=== PATIENT | female | born 1980 | race American Indian/Alaskan Native ===

== ENCOUNTER 2018-12-25 21:27 | Inpatient (IN) | payer MEDICAID ==
[2018-12-25] MEDS ORDERED: LACTATED RINGERS 1,000 ML ONE (23:22)
[2018-12-25] MEDS ORDERED: AMPICILLIN/NS 2 GM/100 ML 2 GM/100 ML BAG IV ONE ×2 (23:35→23:45)
[2018-12-25] MEDS ORDERED: STADOL IV PRN (23:40)
[2018-12-25] MEDS ORDERED: LACTATED RINGERS 1,000 ML IV SCH (23:45)
[2018-12-26] MEDS ORDERED: PITOCin/NS 30 UNIT/500ML 30,000 MILLIUNITS/500 ML BAG IV ONE (00:54)
[2018-12-26] MEDS ORDERED: BENADRYL IV ONE (01:03)
[2018-12-26] MEDS ORDERED: BENADRYL ONE (01:06)
[2018-12-26] MEDS: CLEOCIN 900 MG/50 mL 900 MG/50 ML BAG IV SCH ×2 (01:28→09:36)
[2018-12-26 01:59] LABS: Hematocrit 39.8 % (30.3-42.9); Hemoglobin 13.5 gm/dl (10.1-14.3); Mean Corpuscular HGB Conc 34 % (30-34); Mean Corpuscular Volume 97 fl (79-97); Platelet Count 144 K/mm3 (140-440); Red Blood Count 4.12 M/mm3 (3.65-5.03)
[2018-12-26] MEDS ORDERED: PITOCin/NS 30 UNIT/500ML 30 UNITS/500 ML BAG IV SCH (03:00)
[2018-12-26] MEDS ORDERED: AMPICILLIN 1 GM in NACL 0.9% 50 ML IV SCH (04:00)
--- NOTE | 2018-12-26 09:35 | Anesthesia Day of Surgery ---
Anesthesia Day of Surgery - Day of Surgery Patient Examined: Yes Patient H&P Reviewed: Yes Patient is NPO: Yes Beta Blockers: No Cardiac Clearance: No Pulmonary Clearance: No Agustin's Test: N/A
[2018-12-26] MEDS ORDERED: NARCAN 2 MG/2 ML IV PRN (09:40)
--- NOTE | 2018-12-26 09:40 | Anesthesia Consultation ---
Anesthesia Consult and Med Hx Date of service: 12/26/18 - Airway Anesthetic Teeth Evaluation: Poor, Chipped ROM Head & Neck: Adequate Mental/Hyoid Distance: Adequate Mallampati Class: Class II Intubation Access Assessment: Probably Good - Pulmonary Exam CTA: Yes - Cardiac Exam Cardiac Exam: RRR - Pre-Operative Health Status ASA Pre-Surgery Classification: ASA2 Proposed Anesthetic Plan: Epidural - Pulmonary Hx Smoking: No Hx Asthma: No Hx Respiratory Symptoms: No SOB: No COPD: No Hx Pneumonia: No Hx Sleep Apnea: No - Cardiovascular System Hx Hypertension: No Hx Coronary Artery Disease: No Hx Heart Attack/AMI: No Hx Angina: No Hx Percutaneous Transluminal Coronary Angioplasty (PTCA): No Hx Cardia Arrhythmia: No Hx Pacemaker: No Hx Internal Defibrillator: No Hx Valvular Heart Disease: No Hx Heart Murmur: No Hx Peripheral Vascular Disease: No - Central Nervous System Hx Neuromuscular Disorder: No Hx Seizures: No CVA: No Hx Back Pain: No Hx Psychiatric Problems: No - Gastrointestinal Hx Ulcer: No Hx Gastroesophageal Reflux Disease: No - Endocrine Hx Renal Disease: No Hx End Stage Renal Disease: No Hx Cirrhosis: No Hx Liver Disease: No Hx Insulin Dependent Diabetes: No Hx Non-Insulin Dependent Diabetes: No Hx Thyroid Disease: No Hx Hypothyroidism: No Hx Hyperthyroidism: No - Hematic Hx Anemia: Yes Hx Sickle Cell Disease: No - Other Systems Hx Alcohol Use: No Hx Substance Use: No Hx Cancer: No Hx Obesity: No
[2018-12-26] MEDS ORDERED: fentaNYL-BUPIV 2 MCG/ML-0.125% 200 MCG/100 ML BAG EPIDURAL SCH (10:00)
[2018-12-26] MEDS ORDERED: MARCAINE 0.25% INFILTRATI ONE (11:00)
[2018-12-26] MEDS ORDERED: PITOCin/NS 20 UNIT/1000ML DRIP 20,000 MILLIUNITS/1,000 ML BAG IV ONE (12:49)
--- NOTE | 2018-12-26 13:16 | History and Physical Report ---
History of Present Illness Date of examination: 12/25/18 Date of admission: 12/25/18 21:27 Chief complaint: I'm here for induction History of present illness: Pt is a 38 year old who presents for induction of labor at 39.1 weeks at the advice of [facility]. Her course has been unremarkable. Past History Past Medical History: no pertinent history Past Surgical History: no surgical history Family/Genetic History: none Social history: - Obstetrical History Expected Date of Delivery: 12/31/18 Actual Gestation: 39 Week(s) 2 Day(s) : 6 Para: 3 Number of Living Children: 3 Medications and Allergies Allergies Allergy/AdvReac Type Severity Reaction Status Date / Time ampicillin Allergy Hives Verified 12/25/18 23:24 Active Meds: Active Medications Butorphanol Tartrate (Stadol) 2 mg IV Q2H PRN PRN Reason: Labor Pain Last Admin: 12/26/18 09:03 Dose: 2 mg Documented by: Ephedrine Sulfate (Ephedrine Sulfate) 10 mg IV Q2M PRN PRN Reason: Hypotension Lactated Ringer's (Lactated Ringers) 1,000 mls @ 125 mls/hr IV DIRECT SANTINO Clindamycin HCl (Cleocin 900 Mg/50 Ml) 900 mg in 50 mls @ 100 mls/hr IV Q8H SANTINO; Protocol Last Admin: 12/26/18 09:36 Dose: 100 mls/hr Documented by: Oxytocin/Sodium Chloride (Pitocin/Ns 30 Unit/500ml) 30 units in 500 mls @ 2 mls/hr IV TITR SANTINO; Protocol Last Titration: 12/26/18 09:04 Dose: 8 ml/hr, 8 mls/hr Documented by: Fentanyl/Bupivacaine/Sodium Chlor (Fentanyl-Bupiv 2 Mcg/Ml-0.125%) 200 mcg in 100 mls @ 12 mls/hr EPIDURAL TITR SANTINO; Protocol Last Admin: 12/26/18 11:07 Dose: 12 mls/hr Documented by: Naloxone HCl (Narcan 2 Mg/2 Ml) 0.2 mg IV Q5M PRN PRN Reason: Respiratory sedation Review of Systems All systems: negative Genitourinary: deferred, pelvic pain - Vital Signs Vital signs: Vital Signs Pulse Pulse Ox 86 97 12/25/18 22:52 12/25/18 22:52 Temp Pulse Resp BP Pulse Ox 98.0 F 98 H 119/66 80 L 12/26/18 08:12 12/26/18 12:58 12/26/18 12:58 12/26/18 12:54 - Physical Exam Breasts: Cardiovascular: Regular rate, Normal S1, Normal S2 Lungs: Positive: Clear to auscultation, Normal air movement Abdomen: Positive: normal appearance, soft, normal bowel sounds. Negative: distention, tenderness Genitourinary (Female): Positive: normal external genitalia, normal perenium Vulva: both: normal Vagina: Positive: normal moisture. Negative: discharge Cervix: Negative: lesion, discharge Uterus: Positive: normal size, normal contour Adnexa: both: normal Anus/Rectum: Positive: normal perianal skin, heme negative. Negative: rectal mass, hemorrhoids Extremities: Positive: normal Deep Tendon Reflex Grade: Normal +2 - Obstetrical FHR: auscultation normal Cervical Dilatation: 3 Cervical Effacement Percentage: 70 station: -2 Uterine Contraction Pattern: Regular Uterine Tone Measurement Phase: Contraction Uterine Contraction Intensity: Moderate Results Result Diagrams: 12/25/18 23:30 Abnormal lab results 12/25/18 Range/Units 23:30 WBC 11.9 H (4.5-11.0) K/mm3 MCH 33 H (28-32) pg All other labs normal. Assessment and Plan IUP at 39.1 weeks for induction of labor. Admit to L&D. Low dose pitocin. Anticipate .
--- NOTE | 2018-12-26 13:21 | Procedure Note ---
OB Delivery Note - Delivery Date of Delivery: 12/26/18 Surgeon: BLANCA THOMAS Estimated blood loss: 100cc - Vaginal Delivery presentation: vertex Delivery position: OA Intrapartum events: none Delivery augmentation: rupture of membranes, pitocin Delivery monitor: external FHT, external uterine Route of delivery: Delivery placenta: spontaneous Delivery cord: 3 umbilical vessels Episiotomy: none Delivery laceration: none Anesthesia: epidural Delivery comments: Viable male delivered over intact perineum at 1255 with apgars 8,9. Nuchal cord x 1. Weight 7 pounds 1 ounce. Placenta delivered spontaneously and intact with 3vc. No lacerations. Patient tolerated procedure well. Excellent hemostasis. - Infant A at 1 minute: 8 at 5 minutes: 9 Infant Gender: Male (7 pounds 1 ounce)
[2018-12-26] MEDS ORDERED: BENADRYL PO PRN (15:52)
[2018-12-26] MEDS ORDERED: PHENERGAN PR PRN (15:52)
[2018-12-26] MEDS ORDERED: TYLENOL PO PRN (15:52)
[2018-12-26] MEDS ORDERED: LANSINOH TP PRN (15:52)
[2018-12-26] MEDS ORDERED: MILK OF MAGNESIA PO PRN (15:52)
[2018-12-26] MEDS ORDERED: DULCOLAX PR PRN (15:52)
[2018-12-26] MEDS ORDERED: TUCKS PAD TP PRN (15:52)
[2018-12-26] MEDS ORDERED: PHENERGAN PO PRN (15:52)
[2018-12-26] MEDS ORDERED: ZOFRAN IV PRN (15:52)
[2018-12-26] MEDS ORDERED: SODIUM CHLORIDE FLUSH SYRINGE 10 ML IV NR (15:52)
[2018-12-26] MEDS: IBUPROFEN PO SCH (17:00)
--- NOTE | 2018-12-26 21:25 | Post Anesthesia Evaluation ---
- Post Anesthesia Evaluation Patient Participated: Yes Airway Patent: Yes Stable Respiratory Function: Yes Nausea/Vomiting: No Temp > 96.8F: Yes Pain Manageable: Yes Adequeate Hydration: Yes Anesthesia Complications: No Block Receding Appropriately: Yes Patient on Ventilator: No
[2018-12-26] MEDS: COLACE PO SCH (22:04)
[2018-12-26] MEDS: NORCO 5/325 PO PRN (22:04)
[2018-12-27] MEDS: IBUPROFEN PO SCH ×3 (00:31→09:10)
[2018-12-27 00:47] LABS: Hemoglobin 12.1 gm/dl (10.1-14.3)
[2018-12-27] MEDS: COLACE PO SCH (09:10)
[2018-12-27] MEDS ORDERED: PRENATAL VITAMIN PO SCH (10:00)
[2018-12-27] MEDS ORDERED: BOOSTRIX IM ONE (13:22)
--- NOTE | 2018-12-27 14:08 | Progress Note ---
Assessment and Plan PPD 1 s/p . Doing well. Plan for discharge today. Subjective - Subjective Date of service: 12/27/18 Interval history: Pt is a 38 year old who presents for induction of labor at 39.1 weeks at the advice of [facility]. Her course has been unremarkable. Patient reports: appetite normal, voiding normally, pain well controlled, ambulating normally : doing well Objective - Vital Signs Latest vital signs: Vital Signs Temp Pulse Resp BP BP Pulse Ox 12/27/18 07:47 98.2 F 80 18 121/77 95 12/27/18 00:00 98.4 F 83 20 117/69 83 L 12/26/18 20:07 97.9 F 78 18 129/75 95 12/26/18 16:55 98.4 F 101 H 18 109/52 98 12/26/18 16:08 97.8 F 85 18 131/78 99 12/26/18 15:50 97.8 F 77 18 132/77 99 12/26/18 14:10 98.1 F 16 Intake and Output 12/26/18 12/27/18 12/27/18 22:59 06:59 14:59 Intake Total 480 240 240 Output Total 900 Balance -420 240 240 Intake: Oral 240 240 Intake, Free Water 240 240 Output: Urine 900 Indwelling Catheter 900 Other: Total, Intake Amount 240 240 Total, Output Amount 900 # Voids Indwelling Catheter 2 1 Void 1 1 - Exam Cardiovascular: Present: Regular rate, Normal S1, Normal S2 Lungs: Present: Clear to auscultation, Normal air movement Abdomen: Present: normal appearance, soft Vulva: both: normal Uterus: Present: normal, fundal height below umbilicus Extremities: Present: normal
--- NOTE | 2018-12-27 14:10 | Discharge Summary ---
Providers - Providers Date of Admission: 12/25/18 21:27 Date of discharge: 12/27/18 Attending physician: BLANCA THOMAS Primary care physician: BLANCA THOMAS Hospitalization Reason for admission: induction of labor Delivery: Episiotomy: none Laceration: none Other procedures: none Discharge diagnosis: IUP at term delivered baby: male Hospital course: unremaerkable Condition at discharge: Good Disposition: DC-01 TO HOME OR SELFCARE Plan - Discharge Medications Prescriptions: HYDROcodone/APAP 5-325 [[place] 5/325] 1 each PO Q6HR PRN #15 tablet PRN Reason: Pain Ibuprofen [Motrin] 800 mg PO Q8HR PRN #40 tablet PRN Reason: Pain, Moderate (4-6) - Provider Discharge Summary Activity: routine, no sex for 6 weeks, no heavy lifting 4 weeks, no strenuous exercise Diet: routine Instructions: routine Additional instructions: [] Smoking cessation referral if applicable(refer to patient education folder for contact #) [] Refer to [facility] Booklet Call your doctor immediately for: * Fever > 100.5 * Heavy vaginal bleeding ( >1 pad per hour) * Severe persistent headache * Shortness of breath * Reddened, hot, painful area to leg or breast * Drainage or odor from incision. * Keep incision clean and dry at all times and follow doctor's instructions regarding bathing/showering - Follow up plan Follow up: BLANCA THOMAS MD [Primary Care Provider] - 6 Weeks
[2018-12-27] MEDS: NORCO 5/325 PO PRN (16:28)
[2018-12-27 16:34] VITALS: BP 121/75
== END 2018-12-27 17:45 | disposition home or self-care (01) | DRG 775 ==
LOC: APU 21:27 → LD 22:44 → OB 12-26 15:12
PROVIDERS: ADMIT Obstetrics & Gynecology; ATTEND Obstetrics & Gynecology
PROC: 10E0XZZ Delivery of Products of Conception, External Approach (ICD-10-PCS; principal; 2018-12-26)
PROC: 00HU33Z Insertion of Infusion Device into Spinal Canal, Percutaneous Approach (ICD-10-PCS; 2018-12-26)
PROC: 3E0R3BZ Introduction of Anesthetic Agent into Spinal Canal, Percutaneous Approach (ICD-10-PCS; 2018-12-26)
PROC: 3E0234Z Introduction of Serum, Toxoid and Vaccine into Muscle, Percutaneous Approach (ICD-10-PCS; 2018-12-27)
DX: O69.81X0 Labor and delivery complicated by cord around neck, without compression, not applicable or unspecified (principal); Z3A.39 39 weeks gestation of pregnancy; Z37.0 Single live birth; Z23 Encounter for immunization
CPT/HCPCS: 36415; 85014; 85018; 85027; 86592; 86850; 86900; 86901; G0378; J0290; J0595; J1200; J2590; J7120

== ENCOUNTER 2019-01-22 06:05 | Day surgery (SDC) | payer MEDICAID ==
[~2019-01-22 06:05] MED LIST: LACTATED RINGERS 1,000 ML IV SCH; NEURONTIN PO NR; VERSED IV NR
[2019-01-22] MEDS ORDERED: CLEOCIN 900 MG/50 mL 900 MG/50 ML BAG IV NR (06:53)
--- NOTE | 2019-01-22 07:20 | Anesthesia Consultation ---
Anesthesia Consult and Med Hx Date of service: 01/22/19 - Airway Anesthetic Teeth Evaluation: Good ROM Head & Neck: Adequate Mental/Hyoid Distance: Adequate Mallampati Class: Class II Intubation Access Assessment: Probably Good - Pre-Operative Health Status ASA Pre-Surgery Classification: ASA2 Proposed Anesthetic Plan: General - Pulmonary Hx Smoking: Yes (Former) Hx Asthma: No Hx Respiratory Symptoms: No SOB: No COPD: No Hx Pneumonia: No Hx Sleep Apnea: No - Cardiovascular System Hx Hypertension: No Hx Coronary Artery Disease: No Hx Heart Attack/AMI: No Hx Angina: No Hx Percutaneous Transluminal Coronary Angioplasty (PTCA): No Hx Cardia Arrhythmia: No Hx Pacemaker: No Hx Internal Defibrillator: No Hx Valvular Heart Disease: No Hx Heart Murmur: No Hx Peripheral Vascular Disease: No - Central Nervous System Hx Neuromuscular Disorder: No Hx Seizures: No CVA: No Hx Back Pain: No Hx Psychiatric Problems: No - Gastrointestinal Hx Ulcer: No Hx Gastroesophageal Reflux Disease: No - Endocrine Hx Renal Disease: No Hx End Stage Renal Disease: No Hx Cirrhosis: No Hx Liver Disease: No Hx Insulin Dependent Diabetes: No Hx Non-Insulin Dependent Diabetes: No Hx Thyroid Disease: No Hx Hypothyroidism: No Hx Hyperthyroidism: No - Hematic Hx Anemia: Yes Hx Sickle Cell Disease: No - Other Systems Hx Alcohol Use: No Hx Substance Use: No Hx Cancer: No Hx Obesity: No
--- NOTE | 2019-01-22 07:21 | Anesthesia Day of Surgery ---
Anesthesia Day of Surgery - Day of Surgery Patient Examined: Yes Patient H&P Reviewed: Yes Patient is NPO: Yes
[2019-01-22] MEDS ORDERED: MARCAINE-EPI/PF 0.25%-1:200,000 INFILTRATI ONE (07:25)
[2019-01-22] MEDS ORDERED: MARCAINE 0.25% INFILTRATI ONE ×2 (07:26→08:53)
[2019-01-22] MEDS ORDERED: ZEMURON IV ONE (07:56)
[2019-01-22] MEDS ORDERED: DILAUDID ONE (07:56)
[2019-01-22] MEDS ORDERED: DIPRIVAN 10 MG/ML IV ONE (07:56)
[2019-01-22] MEDS ORDERED: XYLOCAINE MPF 2% ONE (07:56)
--- NOTE | 2019-01-22 08:05 | Short Stay Summary ---
Short Stay Documentation Date of service: 01/22/19 Narrative H&P: Patient is a 38 year old Who presents 8 weeks for an elective tubal ligation. - History Principal diagnosis: Undesired fertility H&P: obtained from office Past Medical History: No medical history Past Surgical History: cholecystectomy Social history: - Allergies and Medications Current Medications: Allergies ampicillin Allergy (Verified 01/20/19 16:44) Anaphylaxis Home Medications Medication Instructions Recorded Confirmed Last Taken Type L.acidoph,Paracasei, B.lactis 1 each PO DAILY 01/20/19 01/22/19 01/19/19 History [Probiotic] Vit-Fe Fumar-FA [ 1 tab PO QDAY 01/20/19 01/22/19 01/14/19 History Vitamin] Active Medications Celecoxib (Celebrex) 200 mg PO PREOP NR Stop: 01/22/19 23:59 Last Admin: 01/22/19 06:39 Dose: 200 mg Documented by: Gabapentin (Neurontin) 300 mg PO PREOP NR Stop: 01/22/19 23:59 Last Admin: 01/22/19 06:39 Dose: 300 mg Documented by: Lactated Ringer's (Lactated Ringers) 1,000 mls @ 100 mls/hr IV DIRECT SANTINO Last Admin: 01/22/19 07:05 Dose: 100 mls/hr Documented by: Clindamycin HCl (Cleocin 900 Mg/50 Ml) 900 mg in 50 mls @ 100 mls/hr IV PREOP NR; Protocol Stop: 01/22/19 23:59 Midazolam HCl (Versed) 2 mg IV PREOP NR Stop: 01/22/19 23:59 Last Admin: 01/22/19 07:30 Dose: 2 mg Documented by: - Physical exam General appearance: no acute distress Integumentary: no rash Lungs: Clear to auscultation, Normal air movement Breasts: deferred Heart: Regular rate, Normal S1, Normal S2 Gastrointestinal: normal, normoactive bowel sounds Female Genitourinary: deferred Rectal Exam: deferred Extremities: no ischemia, No edema - Brief post op/procedure progress note Date of procedure: 01/22/19 Pre-op diagnosis: Undesired fertility Post-op diagnosis: same Procedure: Laparoscopic Tubal Ligation and Fulguration Anesthesia: GETA Findings: 4-5cm pedunculated fibroid on left cornua, otherwise normal uterus tubes and ovaries Surgeon: BLANCA THOMSA Estimated blood loss: 50-100ml Pathology: list (right fallopian tube) Specimen disposition: to lab Condition: stable - Disposition Condition at discharge: Good Disposition: DC- TO HOME OR SELFCARE Short Stay Discharge Plan Activity: advance as tolerated Weight Bearing Status: Weight Bear as Tolerated Diet: regular Follow up with: BLANCA THOMAS MD [Staff Physician] - 14 Days Prescriptions: Ibuprofen [Motrin] 800 mg PO Q8HR PRN #40 tablet PRN Reason: Pain, Moderate (4-6) HYDROcodone/ACETAMINOPHEN [[place] 5-325 Tablet] 2 each PO Q6H #28 tablet
[2019-01-22] MEDS ORDERED: DILAUDID IV PRN (08:17)
[2019-01-22] MEDS ORDERED: NACL 0.9% IR ONE (08:53)
[2019-01-22] MEDS ORDERED: TORADOL ONE (09:18)
[2019-01-22] MEDS ORDERED: BLOXIVERZ ONE (09:18)
[2019-01-22] MEDS ORDERED: ZOFRAN ONE (09:19)
[2019-01-22] MEDS ORDERED: ROBINUL ONE (09:19)
[2019-01-22] MEDS ORDERED: DECADRON ONE (09:54)
--- NOTE | 2019-01-22 10:26 | Operative Report ---
Operative Report Operative Report: Preoperative diagnosis: Undesired fertility Postoperative diagnosis: Same Procedure: Bilateral laparoscopic salpingectomy Surgeon: Tash Atwood Anesthesia: General EBL: Minimal IV fluids: 1000 mL Urine output: 200 mL Findings: Normal uterus tubes and ovaries with a large 5-6 cm pedunculated fibroid coming from the left cornua Specimens: Portion of right and left fallopian tube Complications: None The patient was properly identified as herself. She was then taken to the OR with IV running and in place. She was given general anesthesia without difficulty. She was placed in a dorsal lithotomy position. She was then prepped and draped in normal sterile fashion. Attention was turned to the patient's vagina. Her bladder was drained of clear urine with a red rubber catheter. The speculum was then placed the patient's vagina. The cervix was visualized and grasped with tenaculum. The acorn cannula was then inserted. The surgeon's gloves were changed and attention turned to the patient's abdomen. A small incision was made in the patient's umbilicus incision a 5 mm trocar was placed. The laparoscope confirmed intra-abdominal placement. The abdomen was insufflated with CO2 gas to approximately 25 mmHg. the right fallopian tube was easily identified, however the left fallopian tube was not visualized due to the obstructing of the large fibroid.. With direct visualization a second trocar was placed through an incision in the left lower quadrant. The right tube was found and followed out to the fimbriated ends. Then tube was cauterized at the portion nearest the cornua, then cauterized across the broad ligament until the tube was completely detached. The left tube was not identified. A third trocar was then placed the an incision in the suprapubic region. Using a grasper the fibroid was anteverted out of the field of view and the left adnexa was visualiz ed. That tube was cauterized and transected in the midportion at the fimbriated end could not be reached. There was excellent hemostasis at the end of this portion of the procedure. Each tube was handed off for pathology. At this point the abdomen was deflated. All instruments were then removed from the abdomen. The incisions were then closed with 4-0 Monocryl. The incisions were also injected with quarter percent Marcaine. The patient tolerated the procedure well she was then awakened and taken recovery in stable condition. Sponge needle and instrument counts were correct 2.
[2019-01-22 10:45] VITALS: BP 135/85
[2019-01-22] MEDS ORDERED: NORCO 5/325 ONE (11:04)
[2019-01-22] MEDS ORDERED: NORCO 5/325 PO PRN (11:04)
--- NOTE | 2019-01-22 12:56 | Post Anesthesia Evaluation ---
- Post Anesthesia Evaluation Patient Participated: Yes Airway Patent: Yes Stable Respiratory Function: Yes Nausea/Vomiting: No Temp > 96.8F: Yes Pain Manageable: Yes Adequeate Hydration: Yes Anesthesia Complications: No
== END 2019-01-22 11:51 | disposition home or self-care (01) ==
LOC: OR 06:05
PROVIDERS: ATTEND Obstetrics & Gynecology
DX: Z30.2 Encounter for sterilization (principal); Z79.899 Other long term (current) drug therapy; Z87.891 Personal history of nicotine dependence; Z88.6 Allergy status to analgesic agent; Z98.890 Other specified postprocedural states; Z83.3 Family history of diabetes mellitus; Z80.8 Family history of malignant neoplasm of other organs or systems; Z82.49 Family history of ischemic heart disease and other diseases of the circulatory system; Z86.2 Personal history of diseases of the blood and blood-forming organs and certain disorders involving the immune mechanism
CPT/HCPCS: 58670; 81025; 88302; J1100; J1170; J1885; J2250; J2405; J2704; J2710; J7120